=== PATIENT | male | born 1975 | race African-American/Black ===

== ENCOUNTER 2017-02-01 12:26 | Emergency (ER) | payer OTHER ==
[~2017-02-01] VITALS: Ht 190.5 cm; Wt 90.0 kg
[~2017-02-01 12:26] MED LIST: CHLO25CA10; PHEN100C4
[2017-02-01 12:46] VITALS: BP 131/77
[2017-02-01 12:53] LABS: BASOPHILS % 0.9 % (0.0-2.0); EOSINOPHILS % 1.3 % (0.0-5.0); HEMATOCRIT. 28.8 % (42.0-52.0); HEMOGLOBIN. 9.8 g/dL (14.0-18.0); LYMPHOCYTES % 31.3 % (20.0-50.0); MEAN CORPUSCULAR HEMOGLOBIN 34.5 pg (28.0-32.0); MEAN CORPUSCULAR VOLUME 101.3 fL (80.0-94.0); MONOCYTES % 11.5 % (2.0-8.0); RED BLOOD CELL COUNT 2.84 mill/uL (4.7-6.1); RED CELL DISTRIBUTION WIDTH 15.7 % (11.6-14.6)
[2017-02-01 13:07] LABS: CARBON DIOXIDE 20 mEq/L (21-32); CHLORIDE 101 mEq/L (98-107)
[2017-02-01 13:11] LABS: PHENYTOIN 14.9 ug/mL (10-20)
[2017-02-01 13:55] LABS: PLATELET 36 x1000/uL (130-400)
[2017-02-01 14:01] LABS: PLATELET ESTIMATE MARKEDLY DECREASED
== END 2017-02-01 14:57 | disposition home or self-care (01) ==
LOC: ER 12:26
DX: G40.909 Epilepsy, unspecified, not intractable, without status epilepticus (principal); R51 Headache; D69.6 Thrombocytopenia, unspecified; F10.10 Alcohol abuse, uncomplicated; R03.0 Elevated blood-pressure reading, without diagnosis of hypertension; G31.9 Degenerative disease of nervous system, unspecified
CPT/HCPCS: 36415; 70450; 80053; 80185; 85025; 99285; Z7610